=== PATIENT | female | born 1990 | race African-American/Black ===

== ENCOUNTER 2022-03-19 05:31 | Emergency (ER) | payer SELFPAY ==
[~2022-03-19] VITALS: Ht 157.5 cm; Wt 70.3 kg
--- NOTE | 2022-03-19 06:29 | ED GI ---
General Chief Complaint: Abdominal/GI Problems Stated Complaint: CONSTIPATED,SOME BLEEDING Nursing Triage Note: TO ED VIA POV AND AMBULATORY TO ROOM 5 WITH C/O CONSTIPATION. PT STATES "IT TOOK ME OVER A WEEK TO REALIZE IT". 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 PER PT SHE HAS "TRIED EVERYTHING", BUT IS ONLY ABLE TO LIST MIRALAX. DENIES ABD PAIN JUST DISCOMFORT. DENIES PREVIOUS ABD SX. Source of Information: Patient Exam Limitations: No Limitations History of Present Illness Date Seen by Provider: Mar 19, 2022 Time Seen by Provider: 06:00 Initial Comments Patient to the ER by private conveyance for chief complaint that she has been having significant obstipation. She says she feels a large hard stool ball in her rectum. She has been using laxatives by mouth, stool softeners, high-fiber diet as well as she took Fleet enema and use glycerin suppositories. She said when enema came back out 15 minutes later it was still clear water. She has a long history of constipation/obstipation. She also has noted large significant hemorrhoids especially since childbirth. Allergies and Home Medications Allergies Coded Allergies: No Known Drug Allergies (Unverified , 03/19/22) Patient Home Medication List Home Medication List Reviewed: Yes Review of Systems Review of Systems Constitutional: No chills, No diaphoresis EENTM: No Blurred Vision, No Double Vision Respiratory: Denies Cough, Denies Shortness of Air Cardiovascular: Denies Chest Pain, Denies Edema Gastrointestinal: Denies Constipated, Denies Diarrhea, Denies Nausea Genitourinary: Denies Discharge, Denies Drainage Musculoskeletal: No back pain, No joint pain All Other Systems Reviewed Negative Unless Noted: Yes Past Advllds-Yjdchx-Ldnxmj Hx Patient Social History Tobacco Use?: No Use of E-Cig and/or Vaping dev: No Physical Exam Vital Signs Vital Signs - First Documented 03/19/22 05:57 Temp 36.7 Pulse 85 Resp 16 B/P (MAP) 106/83 (91) Pulse Ox 98 O2 Delivery Room Air Capillary Refill : Less Than 3 Seconds Height/Weight/BMI Height: '" Weight: lbs. oz. kg; 28.00 BMI Method: General Appearance: WD/WN, no apparent distress HEENT: PERRL/EOMI, pharynx normal Neck: full range of motion, normal inspection Respiratory: no respiratory distress, no accessory muscle use Cardiovascular: normal peripheral pulses, regular rate, rhythm Peripheral Pulses: 2+ Radial Pulses (R), 2+ Radial Pulses (L) Neurologic/Psychiatric: alert, normal mood/affect, oriented x 3 Skin: normal color, warm/dry Progress/Results/Core Measures Results/Orders Vital Signs/I&O 03/19/22 05:57 Temp 36.7 Pulse 85 Resp 16 B/P (MAP) 106/83 (91) Pulse Ox 98 O2 Delivery Room Air Blood Pressure Mean: 91 Progress Progress Note : Time: 06:37 Progress Note Encourage soapsuds and molasses enema. MiraLAX. Aseptic vital signs. Departure Impression Primary Impression: Obstipation Additional Impression: Fecal impaction in rectum Disposition: HOME, SELF-CARE Condition: Stable Departure-Patient Inst. Decision time for Depature: 06:25 Referrals: NO,LOCAL PHYSICIAN (PCP/Family) Primary Care Physician Patient Instructions: Fecal Impaction (DC), Constipation, Adult ED, Irritable Bowel Syndrome (DC) Add. Discharge Instructions: Obtain an enema bucket or enema bag from the pharmacy. Mix a half a cup of warm milk with a half a cap of sorghum molasses or corn syrup. Diluted in 2 cups of warm water. Put the contents of 4 capsules of Dulcolax in the enema bucket. 1 pump of soap or detergent. Mix thoroughly in the enema bag and instill into your rectum. Hold for as long as possible typically 10 to 30 minutes. You may also use MiraLAX 1 capful in 6 ounces of fluid every 10 to 15 minutes until you have consumed up to a gallon. Follow-up with general surgery, Dr. Washington if you are having concerns about your hemorrhoids. Once you have cleared your impaction then you should use Colace or similar stool softeners on a daily basis to prevent constipation in the future. You may use 1 capful of MiraLAX daily to stay regular in the future. All discharge instructions reviewed with patient and/or family. Voiced understanding. Work/School Note: Work Release Form Date Seen in the Emergency Department: Mar 19, 2022 Return to Work: Mar 21, 2022 Restrictions: No Restrictions RACHANA MADERA Mar 19, 2022 06:29
[2022-03-19 06:35] VITALS: BP 106/83
== END 2022-03-19 06:35 | disposition home or self-care (01) ==
LOC: ER 05:40
DX: K56.41 Fecal impaction (principal); Z28.310 Unvaccinated for COVID-19
CPT/HCPCS: 99281